=== PATIENT | male | born 1970 | race Caucasian/White ===

== ENCOUNTER 2025-01-19 11:44 | Emergency (ER) | payer OTHER ==
[2025-01-19] MEDS: Diphtheria,Pertussis(Acell),Tetanus Vaccine 0.5 ML Syringe IM ONE (12:21)
[2025-01-19] MEDS: Water For Injection, Sterile 10 ML SDV INJECT ONE (12:24)
== END 2025-01-19 13:27 | disposition home or self-care (01) ==
LOC: MW.ED 11:44 → MERGE 11:44 → MW.ED 13:27
DX: S62.630B Displaced fracture of distal phalanx of right index finger, initial encounter for open fracture (principal); Z23 Encounter for immunization; Z79.899 Other long term (current) drug therapy; X58.XXXA Exposure to other specified factors, initial encounter; Y93.89 Activity, other specified
CPT/HCPCS: 26755; 73140; 90471; 90715; 96372; 99283; J0665; J0690; J2003